=== PATIENT | female | born 1990 | race Caucasian/White ===

== ENCOUNTER 2025-08-01 12:31 | Emergency (ER) | payer SELFPAY ==
[2025-08-01] MEDS ORDERED: Acetaminophen 500 MG TAB ONE (13:17)
== END 2025-08-01 13:43 | disposition home or self-care (01) ==
LOC: ERS 12:31
DX: J06.9 Acute upper respiratory infection, unspecified (principal); I10 Essential (primary) hypertension; Z79.899 Other long term (current) drug therapy
CPT/HCPCS: 87428; 99283